=== PATIENT | female | born 1980 | race Caucasian/White ===

== ENCOUNTER 2020-03-30 12:15 | Emergency (ER) | payer BC ==
--- NOTE | 2020-03-30 12:58 | EDM.PDOC ---
ED HPI GENERAL MEDICAL PROBLEM - General Chief Complaint: Skin Complaint Stated Complaint: POISON HARLAN Time Seen by Provider: 03/30/20 12:52 Source of Information: Reports: Patient - Related Data Allergies Allergy/AdvReac Type Severity Reaction Status Date / Time amoxicillin Allergy Other Verified 03/30/20 12:35 cephalexin Allergy Anaphylactic Verified 03/30/20 12:35 Shock duloxetine [From Cymbalta] Allergy Other Verified 03/30/20 12:35 erythromycin base Allergy Anaphylactic Verified 03/30/20 12:35 Shock nalbuphine [From Nubain] Allergy Anaphylactic Verified 03/30/20 12:35 Shock Penicillins Allergy Other Verified 03/30/20 12:35 Home Meds: Home Meds ALPRAZolam [Xanax] 0.5 mg PO QID PRN 03/30/20 [History] Brexpiprazole [Rexulti] 2 mg PO DAILY 03/30/20 [History] Doxepin [SINEquan] 10 - 20 mg PO BEDTIME PRN 20 Days #20 cap 03/30/20 [Rx] Pregabalin [Lyrica] 75 mg PO BID 03/30/20 [History] Sertraline HCl [Zoloft] 150 mg PO BEDTIME 03/30/20 [History] Topiramate [Topamax] 75 mg PO DAILY 03/30/20 [History] Triamcinolone Acetonide [Triamcinolone Acetonide 0.1% Oint] 80 gm TOP QAM PRN 10 Days #1 tube 03/30/20 [Rx] hydrOXYzine HCL [Atarax] 25 mg PO Q6H PRN 10 Days #40 tab 03/30/20 [Rx] lamoTRIgine [LaMICtal] 200 mg PO BEDTIME 03/30/20 [History] predniSONE [Prednisone] See Taper PO DAILY 30 Days #26 tablet 03/30/20 [Rx] Past Medical History Musculoskeletal History: Reports: Fibromyalgia Psychiatric History: Reports: Anxiety, Depression - Past Surgical History HEENT Surgical History: Reports: Tonsillectomy Female Surgical History: Reports: Hysterectomy Social & Family History - Tobacco Use Smoking Status *Q: Current Every Day Smoker Years of Tobacco use: 3 Packs/Tins Daily: 0.5 - Caffeine Use Caffeine Use: Reports: Soda Course - Vital Signs Last Recorded V/S: Last Vital Signs Temp 36.6 C 03/30/20 12:39 Pulse 85 03/30/20 12:39 Resp 16 03/30/20 12:39 BP 125/81 03/30/20 12:39 Pulse Ox 97 03/30/20 12:39 - Orders/Labs/Meds Meds: Medications Discontinued Medications Generic Name Dose Route Start Last Admin Trade Name Freq PRN Reason Stop Dose Admin Dexamethasone 10 mg 03/30/20 13:07 Dexamethasone IM 03/30/20 13:08 ONETIME STA Hydroxyzine HCl 100 mg 03/30/20 13:08 Vistaril IM 03/30/20 13:09 ONETIME ONE Departure - Departure Time of Disposition: 13:50 Disposition: Home, Self-Care 01 Clinical Impression: Contact dermatitis, Poison harlan dermatitis - Discharge Information Prescriptions: hydrOXYzine HCL [Atarax] 25 mg PO Q6H PRN 10 Days #40 tab PRN Reason: dermatitis predniSONE [Prednisone] See Taper PO DAILY 30 Days #26 tablet Doxepin [SINEquan] 10 - 20 mg PO BEDTIME PRN 20 Days #20 cap PRN Reason: Itching Triamcinolone Acetonide [Triamcinolone Acetonide 0.1% Oint] 80 gm TOP QAM PRN 10 Days #1 tube PRN Reason: Rash Instructions: Pruritus, Poison [place] Dermatitis, Rash, Adult, Poison [place] Dermatitis, Contact Dermatitis Referrals: PCP,None [Primary Care Provider] - Forms: ED Department Discharge Additional Instructions: 1. Prevention Tecnu scrub and wash which is available on [employer] (use wash immediately after coming in from outside within 8 hrs) and Tecnu scrub when shower with cool water initially then normal showering. 2. Medication for prevention: Zyrtec 10mg BID up to QID if needed for treatment. 3. First line of treatment: Topical Hydrocortisone cream on face max of TID x 2 weeks. Aveeno anti-itch lotion may be helpful. Ivyrest soap to remove oil from skin. Wash clothing (bath towel/wash cloths) in hot water x 2 with soap. You can get poison harlan from the oil remaining on your clothing for up to 1 year later. DO NOT rewear clothing if you are having an acute allergic response. Do not reuse the same wash cloth unless washed in hot water and soap. You can spread the rash with oil on the wash cloth evening if you wash with soap while using the wash cloth. 4. Benadryl 25-50mg every 6 hours if Hydroxyzine 25mg every 6-8hr and up to 50mg at night for itching and rash. Histamine 1 receptor angelica. 5. Pepcid and Tagamet are the substitute for Zantac for Histamine 2 receptor (allergy angelica). 6. You were given 2 injections during ER visit: Decadron 10mg IM and Vistaril 100mg IM for acute allergy itch symptoms. 7. Topical Steroid ointment (may be used) on other any both surface area other than your upper neck and face. 8. Oral Prednisone (extended taper) as the oil may be remaining on your skin and if a short course is use your rash will come ollie 10 fold if treatment course is too short. 9. Doxepin 10-20 mg at night as needed for severe itching (consider only taking 10mg with anti-depressant medications. Sepsis Event Note (ED) - Evaluation Sepsis Screening Result: No Definite Risk - Focused Exam Vital Signs: Vital Signs Temp Pulse Resp BP Pulse Ox 03/30/20 12:39 36.6 C 85 16 125/81 97 03/30/20 12:28 36.6 C 85 16 125/81 97
[2020-03-30] MEDS ORDERED: Dexamethasone 4 MG/ML SDV IM STA (13:07)
[2020-03-30] MEDS ORDERED: hydrOXYzine HCL 100 MG/2 ML SDV IM ONE (13:08)
== END 2020-03-30 14:15 | disposition home or self-care (01) ==
LOC: JP.ED 12:15
DX: L23.7 Allergic contact dermatitis due to plants, except food (principal); F41.9 Anxiety disorder, unspecified; F32.9 Major depressive disorder, single episode, unspecified; F17.210 Nicotine dependence, cigarettes, uncomplicated; Z79.899 Other long term (current) drug therapy; Z88.1 Allergy status to other antibiotic agents; Z88.0 Allergy status to penicillin; Z88.8 Allergy status to other drugs, medicaments and biological substances
CPT/HCPCS: 96372; 99282; J1100; J3410